=== PATIENT | male | born 1950 | race Hispanic/Latino ===

== ENCOUNTER 2023-05-22 10:44 | Emergency (ER) | payer OTHER, SELFPAY ==
--- NOTE | ~2023-05-22 | XR_ITS ---
EXAMINATION: XR hip RT min 3V w AP pelvis DATE: 05/22/2023 13:09 INDICATION: Right hip pain. TECHNIQUE: An anteroposterior view of the pelvis and 3 views of right hip were obtained. COMPARISON: None. FINDINGS: There is lumbar levocurvature and mild spondylosis. No fracture. There is a bipolar right h ip hemiarthroplasty in near-anatomic alignment. No periprosthetic lucency to suggest loosening or inf ection. No fracture. There is moderate osteoarthritis of the hips. IMPRESSION: 1. Bipolar right hip hemiarthroplasty in near-anatomic alignment. 2. Moderate osteoarthritis of the hips. Reviewed, dictated and finalized at location A.
[2023-05-22 10:51] VITALS: BP 149/60; PULSE 66; RESP 16; TEMP 36.2; O2SAT 99
[2023-05-22 11:33] VITALS: BP 139/86; PULSE 72; RESP 21; TEMP 36.8; O2SAT 98
[2023-05-22 13:05] VITALS: BP 141/91; PULSE 61; RESP 15; O2SAT 99
--- NOTE | 2023-05-22 13:26 | ED_ITS ---
HPI - Extremity Injury (Lower) General Chief Complaint: Extremity Injury, Lower Stated Complaint: R. hip pain Time Seen by Provider: 05/22/23 11:42 History of Present Illness HPI Narrative: 72-year-old Tuvaluan-speaking only unusual patient presents to the emergency room for evaluation of acute on chronic right hip pain. 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 The patient states approximately 3 weeks ago the pain became unbearable to where he could not walk . Patient denies any new injury or trauma. States that he has been taking 400 mg of ibuprofen intermittently with no improvement of the symptoms. Denies any radiating pain. Denies any numbness or tingling distal to the hip. Related Data Allergies Allergy/AdvReac Type Severity Reaction Status Date / Time No Known Allergies Allergy Verified 05/22/23 11:29 Course Vital Signs Vital signs: Vital Signs Temperature 36.2 C L 05/22/23 10:51 Pulse Rate 66 05/22/23 10:51 Respiratory Rate 16 05/22/23 10:51 Blood Pressure 149/60 H 05/22/23 10:51 Pulse Oximetry 99 05/22/23 10:51 Temperature 36.8 C 05/22/23 11:33 Pulse Rate 72 05/22/23 11:33 Respiratory Rate 21 H 05/22/23 11:33 Blood Pressure 139/86 05/22/23 11:33 Pulse Oximetry 98 05/22/23 11:33 Oxygen Delivery Room Air 05/22/23 11:33 MDM - Extremity Injury (Lower) MDM Narrative Medical decision making narrative: 72-year-old [place]uan-speaking male her history of chronic right hip pain presents to the emergency room with acute onset of right hip pain 3 weeks ago. Patient states the pain is worse with ambulation. Denies any known injury or trauma. Imaging showed a stable right hip hemiarthroplasty with moderate osteoarthritis. Will send patient home with a Lexiscan and have him follow-up with orthopedics. Discharge Plan Discharge Clinical Impression: Osteoarthritis Qualifiers: Osteoarthritis location: hip Osteoarthritis type: primary Laterality: right Qualified Code(s): M16.11 - Unilateral primary osteoarthritis, right hip Patient Disposition: Home, Self-Care Condition: Stable Instructions: Antibiotic Form, Osteoarthritis (ED) Prescriptions: New meloxicam 15 mg tablet 15 mg PO DAILY Qty: 30 0RF methocarbamol 500 mg tablet 500 mg PO TID Qty: 30 0RF Follow-up/Referrals: Ash Horner MD [Physician] - Poppy,RACHID Adams [Primary Care Provider] - Time of Disposition: 13:59
[2023-05-22 14:36] VITALS: BP 147/88; PULSE 63; RESP 16; TEMP 36.6; O2SAT 99
== END 2023-05-22 14:34 | disposition home or self-care (01) ==
PROVIDERS: Emergency Provider Nurse Practitioner Family; PCP Physician Assistant
DX: M16.11 Unilateral primary osteoarthritis, right hip (principal); Z96.641 Presence of right artificial hip joint
CPT/HCPCS: 73502; 99283